=== PATIENT | female | born 1985 | race Caucasian/White ===

== ENCOUNTER 2017-08-30 12:50 | Emergency (ER) | payer OTHER ==
--- NOTE | 2017-08-30 13:04 | ED.PDOC ---
History of Present Illness - General Chief Complaint: Chest Pain/[place] Stated Complaint: chest pain Time Seen by Provider: 08/30/17 13:03 Source: patient, RN notes reviewed, Vital Signs reviewed Additional Information: New onset chest pain today. Chest pain - described as shock-like pain and is also tender to palpation. Family history of blood clots. - History of Present Illness Timing/Duration: 24 hours Severity/Quality: moderate, burning Location: substernal Chest Pain Radiation: shoulders Activities at Onset: none Prior Chest Pain/Cardiac Workup: no prior chest pain Improving Factors: nothing Worsening Factors: movement - and palpation Associated Symptoms: denies symptoms Allergies/Adverse Reactions: Allergies NO KNOWN ALLERGY Allergy (Verified 08/30/17 13:11) Home Medications: Ambulatory Orders NK [NK] 08/30/17 Review of Systems - Review of Systems Constitutional: States: no symptoms reported EENTM: States: no symptoms reported Respiratory: States: no symptoms reported Cardiology: States: see HPI Gastrointestinal/Abdominal: States: no symptoms reported Genitourinary: States: no symptoms reported Musculoskeletal: States: see HPI - chronic shoulder pain Skin: States: no symptoms reported Neurological: States: no symptoms reported Endocrine: States: no symptoms reported Hematologic/Lymphatic: States: no symptoms reported Family Medical History - Family History Mother Family History: Unknown Physical Exam - Physical Exam General Appearance: Anxious, Comfortable, No apparent distress Eyes, Ears, Nose, Throat Exam: PERRL/EOMI, normal ENT inspection, pharynx normal Neck: non-tender, full range of motion, supple Respiratory: lungs clear, normal breath sounds, no respiratory distress, no accessory muscle use, other - Parasternal and intercostal tenderness to palpation Cardiovascular/Chest: normal peripheral pulses, regular rate, rhythm, no edema Gastrointestinal/Abdominal: non tender, soft Extremity: normal range of motion, non-tender, normal inspection Neurologic: unix manager II-XII nml as tested, no motor/sensory deficits, alert, normal mood/affect, oriented x 3 Skin Exam: normal color, warm/dry Lymphatic: no adenopathy Progress - Progress Progress: 08/30/17 16:52 Pt with chest pain. Reproducible. Negative work-up for cardiac etiology and negative CTPA which rules out PE. Pt stable for d/c home with trial of NSAID and strict return precautions. - Results/Orders Results/Orders: CT PA Report: Spiral CT with multiplanar reformatted images. Intravenous iodinated nonionic contrast. 3-D reconstructions This exam was performed according to our departmental dose-optimization program, which includes automated exposure control, adjustment of the mA and/or kV according to patient size and/or use of iterative reconstruction technique. FINDINGS: Normal contrast enhancement of the cardiac chambers and pulmonary arteries. No filling defect. Normal thoracic aorta No pulmonary edema, infiltrate or effusion No thoracic mass or adenopathy. No abnormality of the visualized upper abdomen No acute bony abnormality IMPRESSION: Normal CT angiogram chest. No pulmonary embolus Laboratory Results - last 24 hr 08/30/17 08/30/17 08/30/17 14:34 14:34 14:45 WBC RBC Hgb Hct MCV MCH MCHC RDW Plt Count MPV Absolute Neuts (auto) Absolute Lymphs (auto) Absolute Monos (auto) Absolute Eos (auto) Absolute Basos (auto) Neutrophils % Lymphocytes % Monocytes % Eosinophils % Basophils % D-Dimer, Quantitative Sodium 140 Potassium 4.2 Chloride 104 Carbon Dioxide 26 Anion Gap 14.2 BUN 11 Creatinine 0.59 L BUN/Creatinine Ratio 18.6 Random Glucose 90 Serum Osmolality 278.3 Calcium 9.7 Total Bilirubin 0.6 AST 15 ALT 15 Alkaline Phosphatase 58 Creatine Kinase 31 CK-MB (CK-2) 0.8 CK-MB (CK-2) % Not Reportable Troponin I < 0.02 Serum Total Protein 8.1 Albumin 4.3 Globulin 3.8 H Albumin/Globulin Ratio 1.1 Urine Color Yellow Urine Appearance Clear Urine pH 7.0 Ur Specific [place] 1.015 Urine Protein Negative Urine Glucose (UA) Negative Urine Ketones Negative Urine Blood Negative Urine Nitrite Negative Urine Bilirubin Negative Urine Urobilinogen 0.2 Ur Leukocyte Esterase Negative Urine RBC 0 Urine WBC 0 Ur Epithelial Cells 0 Urine Bacteria 0 Urine HCG, Qual Negative 08/30/17 08/30/17 14:45 14:45 WBC 8.8 RBC 4.82 Hgb 13.6 Hct 40.5 MCV 84.0 MCH 28.2 MCHC 33.5 RDW 12.6 Plt Count 217 MPV 7.7 Absolute Neuts (auto) 6.80 Absolute Lymphs (auto) 1.60 Absolute Monos (auto) 0.30 Absolute Eos (auto) 0.00 Absolute Basos (auto) 0.00 Neutrophils % 77.6 Lymphocytes % 18.3 L Monocytes % 3.4 Eosinophils % 0.4 L Basophils % 0.3 D-Dimer, Quantitative 537 H* Sodium Potassium Chloride Carbon Dioxide Anion Gap BUN Creatinine BUN/Creatinine Ratio Random Glucose Serum Osmolality Calcium Total Bilirubin AST ALT Alkaline Phosphatase Creatine Kinase CK-MB (CK-2) CK-MB (CK-2) % Troponin I Serum Total Protein Albumin Globulin Albumin/Globulin Ratio Urine Color Urine Appearance Urine pH Ur Specific [place] Urine Protein Urine Glucose (UA) Urine Ketones Urine Blood Urine Nitrite Urine Bilirubin Urine Urobilinogen Ur Leukocyte Esterase Urine RBC Urine WBC Ur Epithelial Cells Urine Bacteria Urine HCG, Qual 08/30/17 13:00 Temperature 97.9 F Pulse Rate [ 64 pulse ox] Respiratory 20 Rate Blood Pressure 111/68 [Right Arm] O2 Sat by Pulse 98 Oximetry Departure - Departure Clinical Impression: Chest pain Qualifiers: Chest pain type: intercostal pain Qualified Code(s): R07.82 - Intercostal pain Time of Disposition: 17:10 Disposition: Discharge to Home or Self Care Departure Forms: ED Discharge - Pt. Copy, Patient Portal Self Enrollment Instructions: DI for Costochondritis, DI for Chest Pain Referrals: ANNA VICTORIA [Primary Care Provider] - 1-2 Weeks Home Medications: Ambulatory Orders NK [NK] 08/30/17 Additional Instructions: Take over the counter Advil 2 to 3 tablets three times a day as needed for pain. Stay well hydrated. Return to ER if condition worsens.
[2017-08-30 13:12] VITALS: TEMP 97.9; O2SAT 98
--- NOTE | 2017-08-30 15:51 | CT ---
EXAM DESCRIPTION: CT angiogram chest CLINICAL HISTORY: Chest pain. Elevated d-dimer, COMPARISON: None Available. TECHNIQUE: Spiral CT with multiplanar reformatted images. Intravenous iodinated nonionic contrast. 3-D reconstructions This exam was performed according to our departmental dose-optimization program, which includes automated exposure control, adjustment of the mA and/or kV according to patient size and/or use of iterative reconstruction technique. FINDINGS: Normal contrast enhancement of the cardiac chambers and pulmonary arteries. No filling defect. Normal thoracic aorta No pulmonary edema, infiltrate or effusion No thoracic mass or adenopathy. No abnormality of the visualized upper abdomen No acute bony abnormality IMPRESSION: Normal CT angiogram chest. No pulmonary embolus Electronically signed by: Hemanth Beard MD 08/30/2017 3:50 PM [employer]
[2017-08-30 17:39] VITALS: BP 104/69
== END 2017-08-30 17:07 | disposition home or self-care (01) ==
LOC: ER 12:50
DX: R07.82 Intercostal pain (principal)

== ENCOUNTER → 2019-03-28 | Outpatient (CLI) | payer BC, OTHER ==
--- NOTE | 2019-03-28 16:45 | MRI ---
EXAM DESCRIPTION: Shoulder,Left CLINICAL HISTORY: 34 years, Female, PAIN LEFT SHOULDER COMPARISON: CT chest 08/30/2017 TECHNIQUE: MRI of the left shoulder was performed with multiplanar multi sequence imaging without intravenous contrast. FINDINGS: Rotator tendons: The supraspinatus and infraspinatus tendons are intact. The subscapularis and teres minor tendons are intact. Rotator muscles: No rotator cuff muscle atrophy. Glenoid labrum: Limited evaluation of the labrum is within normal limits. Acromion: The acromion morphology is type one. Bone and joints: No focal bone marrow contusion or fracture. No thickness cartilage defect. Biceps tendon: Normal course and morphology of the biceps tendon long head within the bicipital groove. The biceps labral anchor appears intact. Soft tissues: No solid or cystic mass is seen. Mild prominent left axillary lymph node, nonspecific and likely reactive. IMPRESSION: Unremarkable left shoulder MRI without rotator cuff tear. No acute osseous or myotendinous abnormality. Electronically signed by: Fredis Bush DO 03/28/2019 4:43 PM CDT
== END ==
LOC: MRI 13:53
PROVIDERS: ATTEND Nurse Practitioner Family
DX: M25.512 Pain in left shoulder (principal)